=== PATIENT | female | born 1970 | race Caucasian/White ===

== ENCOUNTER 2022-07-11 01:35 | Day surgery (SDC) | payer BC, SELFPAY ==
[2022-06-24 13:03] VITALS: BMI 55.7
--- NOTE | 2022-07-10 15:54 | PM.HPGS ---
History of Present Illness History of Present Illness Consent: Risks, benefits, and alternatives have been discussed and questions answered. Patient agrees to proceed with procedure. Chief complaint: neoplasm screening Narrative: Shirlene Ann is a 51 year old female Referred for colon cancer screening. Review of Systems Review of Systems: All systems reviewed & are unremarkable except as noted in HPI and below PMFSH Past Medical History Medical History Asthma Morbid obesity SNEHA (obstructive sleep apnea) Surgical History Surgical History History of carpal tunnel surgery History of foot surgery Social History Social History Smoking status: Never smoker Alcohol intake: current Drinks per week: 6 Substance use: never Substance use type: does not use Living arrangements: with family Spiritual care concerns: No Meds Home Medications and Allergies Home Medications Medication Instructions Recorded Confirmed Type albuterol sulfate 90 mcg/actuation 2 puff inhalation PRN PRN 06/24/22 07/11/22 History aerosol inhaler Shortness Of Breath Or Wheezing Allergies Allergy/AdvReac Type Severity Reaction Status Date / Time enviromental and seasonal Allergy Mild Other Uncoded 07/11/22 11:10 MOLD Allergy Unknown Other Uncoded 07/11/22 11:10 Exam Resp: Auscultation: clear to auscultation bilaterally Cardio: Rate: regular rate Rhythm: regular rhythm GI: GI Palp: Yes Soft to palpation and No Tenderness to palpation present (GI) Assessment and Plan Assessment and plan (1) Colon cancer screening: Code(s): Z12.11 - Encounter for screening for malignant neoplasm of colon Status: Acute Assessment and Plan: Colonoscopy with possible biopsy or polypectomy or cautery or injection of substances.
[2022-07-11 11:11] VITALS: BP 173/86; PULSE 74; RESP 18; TEMP 36.2; O2SAT 96
[2022-07-11] MEDS: LACTATED RINGERS 1,000 ML 150 ML IV CONT (11:22)
--- NOTE | 2022-07-11 12:01 | P.PNAN_ITS ---
Anes - Initial Pre Proc Eval Procedure: Operation Date: 07/11/22 12:30 Proposed Procedures p Screening Colonoscopy - Nick Aldrich MD Date/Time: 07/11/22 12:01 Surgeon: Nick Aldrich MD Pre Op Diagnosis: neoplasm screening Patient Data Age: 51 Gender: F Height: 1.68 m Weight: 148.9 kg Last Vital Signs Temp 36.2 C L 07/11/22 11:11 Pulse 74 07/11/22 11:11 Resp 18 07/11/22 11:11 BP 173/86 H 07/11/22 11:11 Pulse Ox 96 07/11/22 11:11 O2 Del Method Room Air 07/11/22 11:11 Allergies Allergy/AdvReac Type Severity Reaction Status Date / Time enviromental and seasonal Allergy Mild Other Uncoded 07/11/22 11:10 MOLD Allergy Unknown Other Uncoded 07/11/22 11:10 Home Medications Medication Instructions Recorded Confirmed Type albuterol sulfate 90 mcg/actuation 2 puff inhalation PRN PRN 06/24/22 07/11/22 History aerosol inhaler Shortness Of Breath Or Wheezing Patient hx anesthesia problems: none Family hx anesthesia problems: none Results Review: All pre-operative results and documents have been reviewed as part of the pre- operative evaluation. [facility] Past Medical History Medical History (Updated 07/11/22 @ 12:01 by Mckay Salazar MD) Asthma Morbid obesity SNEHA (obstructive sleep apnea) Surgical History Surgical History (Updated 07/11/22 @ 12:03 by Mckay Salazar MD) History of carpal tunnel surgery History of foot surgery Social History Social History Smoking status: Never smoker Alcohol intake: current Drinks per week: 6 Substance use: never Substance use type: does not use Living arrangements: with family Spiritual care concerns: No Anes - Eval Final PreProcedure Day of Procedure 07/11/22 12:01 Patient weight: super morbidly obese Heart: regular rate and rhythm Lungs: clear to auscultation Airway: Mallampati scale class II Neurological: alert and oriented Last oral intake: >/= 8 hours ASA classification: III Emergent: no Anesthetic plan: proceed Anesthesia type and monitoring: general GIVS and standard monitoring Results Review: All pre-operative results and documents have been reviewed as part of the pre- operative evaluation. Informed Consent: The patient's anesthetic plan and its attendant risks and benefits were discussed with the patient/family/POA. Questions were solicited and answers provided to the satisfaction of the patient/family/POA.
[2022-07-11 12:49] VITALS: BP 145/86; PULSE 92; RESP 20; O2SAT 99
[2022-07-11 12:59] VITALS: BP 121/72; PULSE 84; RESP 22; O2SAT 98
[2022-07-11 13:09] VITALS: BP 134/77; PULSE 80; RESP 20; O2SAT 99
== END 2022-07-11 13:21 | disposition home or self-care (01) ==
PROVIDERS: PCP Family Medicine; Visit Provider Internal Medicine Gastroenterology
PROC: 0DJD8ZZ Inspection of Lower Intestinal Tract, Via Natural or Artificial Opening Endoscopic (ICD-10-PCS; CPT 45378; principal; 2022-07-11 12:30)
DX: Z12.11 Encounter for screening for malignant neoplasm of colon (principal); D12.4 Benign neoplasm of descending colon; K63.5 Polyp of colon; Z79.51 Long term (current) use of inhaled steroids; G47.33 Obstructive sleep apnea (adult) (pediatric); J45.909 Unspecified asthma, uncomplicated; E66.01 Morbid (severe) obesity due to excess calories; Z68.43 Body mass index [BMI] 50.0-59.9, adult
CPT/HCPCS: 45385; 45381; 88305; J2704; J7120